=== PATIENT | male | born 1955 | race Caucasian/White ===

== ENCOUNTER 2018-03-08 18:42 | Inpatient (IN) | payer OTHER ==
[~2018-03-08] VITALS: Ht 177.8 cm; Wt 89.8 kg
[2018-03-08 19:11] LABS: ABSOLUTE BASOPHIL COUNT 0.1 /CUMM (0.0-0.2); ABSOLUTE EOSINOPHIL COUNT 0.2 /CUMM (0.0-0.7); ABSOLUTE GRANULOCYTE CT 6.5 /CUMM (1.4-6.5); ABSOLUTE LYMPH COUNT 1.4 /CUMM (1.2-3.4); ABSOLUTE MONOCYTE COUNT 0.6 /CUMM (0.10-0.60); BASOPHIL % 0.6 % (0.0-2.0); EOSINOPHIL % 2.1 % (0-5); GRANULOCYTE % 74.3 % (42.2-75.2); HEMATOCRIT 24.4 % (42-52); MEAN CORPUSCULAR HGB 30.8 PG (27.0-31.0); MEAN CORPUSCULAR VOLUME 90.6 FL (80.0-94.0); MEAN PLATELET VOLUME 6.7 FL (7.4-10.4); PLATELET COUNT 327 /CUMM (130-400); RBC DISTRIBUTION WIDTH 14.5 % (11.5-14.5); RED BLOOD CELL CT 2.69 /CUMM (4.70-6.10); WHITE BLOOD CELL COUNT 8.8 /CUMM (4.8-10.8)
--- NOTE | 2018-03-08 21:04 | ED GENERAL ADULT ---
History of Present Illness General Chief Complaint: Dizziness Stated Complaint: SOB,GENERAL WEAKNESS,DIZZY Source: patient, family Exam Limitations: no limitations Vital Signs & Intake/Output Vital Signs & Intake/Output Vital Signs Date Time Temp Pulse Resp B/P B/P Pulse O2 O2 Flow FiO2 Mean Ox Delivery Rate 03/08 2120 91 18 118/60 99 03/08 1853 97.4 91 18 134/75 99 Room Air Allergies Coded Allergies: NO KNOWN ALLERGIES (03/02/13) Triage Note: PT TO ER C/C 4 DAYS HX OF SOB AND BARBOZA, STARTED WHILE PATIENT WAS IN [place]. DENIES COUGH, DENIES CHEST PAIN. PT STATES WHILE IN [place] HE HAD SOME LOWER EXT EDEMA (NONE NOTED NOW). RA SAT 98%. AFEBRILE Triage Nurses Notes Reviewed? yes HPI: Patient presents with lightheadedness that has been worsening over the past 4 days. The symptoms are worse with exertion and then decrease with rest. Patient is also noticed that he gets left shoulder achy pain over the past 3 days that also called with exertion and then decreases with rest. When he gets an aching pain there is no radiation. He rates it at a 4 out of 10. Patient denies any chest pain or shortness of breath. Patient denies any dizziness. Patient states that over the past week and a half he has had anorexia. Patient states that he was recently in [place] visiting friends and had a lot of alcohol while there. Patient did have a one day history of periumbilical crampy abdominal pain that lasted most of the day and then resolved. Patient states he has not had any pain since then. Patient states that while down in [place] he had approximately 3 day history of very dark tarry stools but those have also resolved. Patient also states that he has been getting a crampy pain in his left calf. The pain seems to be worse at night and then goes away during the day. There is no radiation when he gets the pain. When he has had pain is 7 out of 10. Past History Travel History Traveled to [place] past 21 day No Medical History Any Pertinent Medical History? see below for history Cardiovascular: hypertension, hyperlipidemia Surgical History Surgical History: non-contributory Psychosocial History What is your primary language Khmer Tobacco Use: Never used ETOH Use: occasional use Illicit Drug Use: denies illicit drug use Family History Hx Contributory? No Review of Systems Review of Systems Constitutional: Reports: see HPI, weakness. EENTM: Reports: no symptoms. Respiratory: Reports: no symptoms. Cardiovascular: Reports: see HPI. GI: Reports: see HPI. Genitourinary: Reports: no symptoms. Musculoskeletal: Reports: see HPI. Skin: Reports: no symptoms. Neurological/Psychological: Reports: no symptoms. Hematologic/Endocrine: Reports: no symptoms. Immunologic/Allergic: Reports: no symptoms. All Other Systems: Reviewed and Negative Physical Exam Physical Exam General Appearance: well developed/nourished, alert, awake, anxious, mild distress Head: atraumatic Eyes: Bilateral: PERRL, EOMI, pale conjunctivae. Ears, Nose, Throat: normal pharynx, normal ENT inspection, hearing grossly normal Neck: normal inspection, supple, full range of motion Respiratory: normal breath sounds, chest non-tender, no respiratory distress, lungs clear Cardiovascular: regular rate/rhythm, normal peripheral pulses Gastrointestinal: normal bowel sounds, soft, non-tender, no organomegaly Rectal: DARK, FORMED STOOL, HEME POSITIVE Back: normal inspection, normal range of motion Extremities: normal inspection, normal capillary refill, normal range of motion, no edema Neurologic/Psych: no motor/sensory deficits, awake, alert, oriented x 3, normal gait, normal mood/affect Skin: intact, normal color, warm/dry Core Measures ACS in differential dx? Yes No ASA d/t HEME POSITIVE STOOL, ANEM CVA/TIA Diagnosis: No Sepsis Present: No Sepsis Focused Exam Completed? No Progress Differential Diagnoses I considered the following diagnoses in my evaluation of the patient: [GI BLEED, PE, ACS, ELECTROLYTE ABNORMALITY] Plan of Care: Orders Procedure Date/time Status Clear Liquid Diet 03/09 B Active TYPE & SCREEN (NOT X-MATCH) 03/08 2157 Active ED Holding Orders 03/08 2153 Active Admit to inpatient 03/08 2153 Active Add-on Test (ER Only) 03/08 2153 Active Vital Signs 03/08 2153 Active Code Status 03/08 2153 Active LEUKOCYTE POOR (PACKED CELLS) 03/08 2153 Active XRY-PORTABLE CHEST XRAY 03/08 2114 Active Add-on Test (ER Only) 03/08 2114 Active Telemetry/Promotions Associate 03/08 2114 Active MISTAKE 03/08 210 Active LIPASE 03/08 185 Complete AMYLASE 03/08 1856 Complete TROPONIN LEVEL 03/08 1854 Complete D-DIMER 03/08 1854 Complete CBC WITHOUT DIFFERENTIAL 03/08 1854 Complete B-TYPE NATRIURETIC PEP (BNP) 03/08 1854 Complete BASIC METABOLIC PANEL 03/08 1854 Complete EKG 03/08 1846 Active Current Medications Sig/Tavo Start time Last Medication Dose Stop Time Status Admin Sodium Chloride 1,000 ML BOLUS ONE 03/08 2115 AC 03/08 (Normal Saline 0.9%) 03/08 2214 213 Laboratory Tests 03/08/181855: Anion Gap 12, Estimated GFR 56 L, BUN/Creatinine Ratio 29.2 H, Glucose 109 H, Calcium 9.6, Troponin I < 0.01, Drz-V-Hynvbbgarct Pept 55.3, Amylase 54, Lipase 209, D-Dimer High Sensitivty 207, CBC w Diff NO MAN DIFF REQ, RBC 2.69 L, MCV 90.6, MCH 30.8, MCHC 34.0, RDW 14.5, MPV 6.7 L, Gran % 74.3, Lymphocytes % 16.3 L, Monocytes % 6.7, Eosinophils % 2.1, Basophils % 0.6, Absolute Granulocytes 6.5, Absolute Lymphocytes 1.4, Absolute Monocytes 0.6, Absolute Eosinophils 0.2, Absolute Basophils 0.1 Diagnostic Imaging: Viewed by Me: Radiology Read. Discussed w/RAD: Radiology Read. Initial ED EKG: NSR, nonspecific ST T wave chg Rhythm Strip: normal sinus rhythm Departure Departure Disposition: STILL A PATIENT Condition: Guarded Clinical Impression Primary Impression: GI bleed Secondary Impressions: ACS (acute coronary syndrome), Symptomatic anemia Referrals: Kavya Cabrera MD (PCP/Family) Departure Forms: Customer Survey General Discharge Information Admission Note Spoke With: Anatoly Calzada MD Documentation of Exam: Documentation of any treatments & extenuating circumstances including Concerns Regarding Discharge (functional status, medication knowledge or non-compliance, living conditions, etc.) that warrant an admission rather than observation: [ Transfusion, GI consultation, cardiology consultation, telemetry monitoring, serial enzymes, most likely will need endoscopy plus or minus colonoscopy] Critical Care Note Critical Care Note Critical Care Time: mins: (45 MIN)
--- NOTE | 2018-03-08 22:06 | RADIOLOGY REPORT ---
EXAMINATION: XR PORTABLE CHEST CLINICAL INFORMATION: Chest pain COMPARISON: None TECHNIQUE: Portable frontal view of the chest was obtained. FINDINGS: Lungs are well expanded and clear. No pulmonary edema, consolidation, pneumothorax or pleural effusion. Cardiac silhouette is normal in size. The hilar contours are normal. No acute osseous findings. IMPRESSION: No acute cardiopulmonary disease.
[2018-03-09] VITALS (10 sets, daily range): BP systolic 100–128; BP diastolic 60–78
--- NOTE | 2018-03-09 00:16 | History & Physical ---
Pritesh PALACIOS,Bernard 03/09/18 0016: General Information and HPI MD Statement: I have seen and personally examined DANIEL SHARMA and documented this H&P. The patient is a 62 year old M who presented with a patient stated chief complaint of [shortness of breath]. Source of Information: patient, old records Exam Limitations: no limitations History of Present Illness: Patient is extremely 62-year-old male with past medical history of hypertension, hyperlipidemia, previous colon cancer screening colonoscopy in 2016 showing mild diverticulosis presenting this admission with chief complaint of shortness of breath and dyspnea on exertion. Patient reports that approximately one week prior to admission he was in [place] at which point he started experiencing sudden onset of shortness of breath. Patient reports that he spent most of the time golfing prior to which he would take aspirin 800 mg. Patient also reports drinking large amounts of alcohol ( states along with 3 other people he was drinking approximately 13 handles of vodka per day.. Patient states otherwise he has been drinking for the past 1 year either 2-3 beers or vodka). Patient reports that while he was in [place] he also had multiple black tarry stool and reported occasional bilateral ankle swelling. Patient states that one day prior to admission he was mowing the lawn at which point he had to stop due to left sided chest pain that radiated to his left arm and subsided with rest. Associated symptoms include dizziness, lightheadedness, palpitations. Patient states that he has had decreased appetite over the past 2 days and has not been drinking much water. Patient denies any bright red blood per stool. Patient states that he is no longer having black tarry stool. Patient denies any nausea/vomiting. Patient reports left-sided low back pain that radiated down his left leg described as sharp shooting pain. 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 Past medical history: As above Past surgical history: Denies Family history: No significant cardiac history. Reports his mother from bone cancer Social history: Current every day alcohol abuse/binge drinking, denies tobacco use or illicit drug use Medications: Lisinopril, simvastatin PCP: Khurram Cabrera MD Allergies: Denies any allergies to medications Allergies/Medications Allergies: Coded Allergies: NO KNOWN ALLERGIES (03/02/13) Home Med list Ferrous Sulfate 325 MG (65 MG IRON) TABLET 1 TAB PO DAILY supplement Lisinopril 10 MG TABLET 1 TAB PO DAILY HTN (Reported) Omeprazole 40 MG CAPSULE. 1 CAP PO DAILY Stomach Health Simvastatin (Simvastatin*) 40 MG TABLET 1 TAB PO QPM HLD (Reported) Past History Travel History Traveled to [place] past 21 day No Medical History Blood Transfusion Hx: No Neurological: dizziness Cardiovascular: hypertension, hyperlipidemia History of MRSA: No History of VRE: No History of CDIFF: No Isolation History: Standard Surgical History Surgical History: non-contributory Past Family/Social History Psychosocial History Where do you live? Home Services at Home: None Smoking Status: Never Smoked ETOH Use: occasional use Illicit Drug Use: denies illicit drug use Review of Systems Review of Systems Constitutional: Reports: see HPI. Cardiovascular: Reports: see HPI. Respiratory: Reports: see HPI. GI: Reports: see HPI. Genitourinary: Reports: no symptoms. Musculoskeletal: Reports: see HPI. Skin: Reports: no symptoms. Neurological/Psychological: Reports: no symptoms. Hematologic/Endocrine: Reports: see HPI. Immunologic/Allergic: Reports: no symptoms. Exam & Diagnostic Data Last 24 Hrs of Vital Signs/I&O Vital Signs Date Time Temp Pulse Resp B/P B/P Pulse O2 O2 Flow FiO2 Mean Ox Delivery Rate 03/09 0704 97.9 68 20 108/62 97 Room Air 03/09 0400 98.9 67 20 116/76 03/09 0301 99.0 72 20 128/78 03/09 0008 98.1 72 20 112/74 97 Room Air 03/08 2312 97.5 86 18 122/74 97 Room Air Room Air 03/08 2120 91 18 118/60 99 03/08 1853 97.4 91 18 134/75 99 Room Air Intake & Output 03/09 0800 03/09 0000 03/08 1600 Intake Total 220 1000 Output Total 150 Balance 70 1000 Intake, IV 1000 Intake, Oral 220 Output, Urine 150 Patient 198 lb 198 lb Weight Weight Bed scale Bed scale Measurement Method Physical Exam General Appearance Alert, Oriented X3, Cooperative, No Acute Distress Skin No Rashes Skin Temp/Moisture Exam: Warm/Dry Sepsis Skin Exam (color): Normal for Ethnicity HEENT Atraumatic, PERRLA, EOMI, Mucous Membr. moist/pink Neck Supple, No JVD, +2 Carotid Pulse wo Bruit Lymphatic Cervical nl Cardiovascular Regular Rate, Normal S1, Normal S2, No Murmurs Lungs Clear to Auscultation, Normal Air Movement Abdomen Normal Bowel Sounds, Soft, No Tenderness Neurological Normal Speech, Strength at 5/5 X4 Ext, Normal Tone, Sensation Intact, Cranial Nerves 3-12 NL, Reflexes 2+ Extremities No Clubbing, No Cyanosis, No Edema, Normal Pulses, No Tenderness/ Swelling Vascular Normal Pulses, Pulses Symmetrical Last 24 Hrs of Labs/Andrea: Laboratory Tests 03/09/18 0253: Urine Opiates Screen < 100, Methadone Screen < 40, Barbiturate Screen < 60, Ur Phencyclidine Scrn < 6.00, Amphetamines Screen < 100, U Benzodiazepines Scrn < 85, Urine Cocaine Screen < 50, Urine Cannabis Screen < 5.00 03/09/18 0123: Troponin I < 0.01 03/08/18 1856: Anion Gap 12, Estimated GFR 56 L, BUN/Creatinine Ratio 29.2 H, Glucose 109 H, Hemoglobin A1c Pending, Calcium 9.6, Phosphorus 4.1, Magnesium 2.0, Iron 75, TIBC 378, Ferritin 151.0, Total Bilirubin 0.4, AST 31, ALT 55, Alkaline Phosphatase 39, Troponin I < 0.01, Xtk-P-Wsrpxpqowgg Pept 55.3, Amylase 54, Lipase 209, Vitamin B12 588, Folate 8.9, TSH 6.720 H, Free T4 0.87, D-Dimer High Sensitivty 207, CBC w Diff NO MAN DIFF REQ, RBC 2.69 L, MCV 90.6, MCH 30.8 , MCHC 34.0, RDW 14.5, MPV 6.7 L, Gran % 74.3, Lymphocytes % 16.3 L, Monocytes % 6.7, Eosinophils % 2.1, Basophils % 0.6, Absolute Granulocytes 6.5, Absolute Lymphocytes 1.4, Absolute Monocytes 0.6, Absolute Eosinophils 0.2, Absolute Basophils 0.1 Assessment/Plan Assessment: Patient is extremely 62-year-old male with past medical history of hypertension, hyperlipidemia, previous colon cancer screening colonoscopy in 2016 showing mild diverticulosis presenting this admission with chief complaint of shortness of breath and dyspnea on exertion. Patient will be admitted to the telemetry unit for management of the followin. Symptomatic anemia likely secondary to upper GI bleed due to aspirin and alcohol use 2. Angina rule out ACS, chest pain likely due to above 3. TOMASA likely prerenal azotemia due to above and dehydration 4. Alcohol abuse, monitor for signs of withdrawal 5. Chronic conditions: Hypertension, hyperlipidemia Plan: Admitted to telemetry with continuous telemetry monitoring Serial EKG and troponins Type and cross and transfuse 1 PRBC Repeat H&H status post one transfusion GI consult in a.m. Cardiology consult in a.m. Hold lisinopril in setting of TOMASA IV NS @ 100cc/hr ECHO CIWA protocol Thiamine and folate Follow up LFTs and INR Replete electrolytes Orthostatic vitals GI prophylaxis: IV protonix BID DVT prophylaxis: ALPS only in setting of acute blood loss Diet: Heart Healthy Code: Full code As Ranked By This Provider Problem List: 1. Symptomatic anemia 2. GI bleed 3. ACS (acute coronary syndrome) Core Measures/Misc (07/19) Acute Coronary Syndrome ACS Diagnosis: No Congestive Heart Failure Congestive Heart Failure Diagnosis No Cerebrovascular Accident CVA/TIA Diagnosis: No VTE (View Protocol) VTE Risk Factors Age>40 No Mechanical VTE Prophylaxis d/t N/A MechProphylax Ordered No VTE Pharm Prophylaxis d/t Bleeding (Active) Sepsis (View protocol) Sepsis Present: No Marvin Rodriguez 03/09/18 0259: Resident Review Statement Resident Statement: examined this patient, discussed with internal medicine physician, agreed with internal medicine physician, discussed with family, reviewed EMR data (avail), discussed with nursing , discussed with case mgmt, reviewed images, amended to note Other Findings: This is a 62-year-old man with a medical history of hypertension, hyperlipidemia. He presented to the emergency department with chief complaint of dyspnea on exertion, palpitation, dizziness. He stated his symptoms started yesterday, getting progressed especially with excision. when he noticed that his heart was pounding, he was feeling dizzy, associated with shortness of breath and dyspnea on exertion . He also had left shoulder pain. He stated that he was taking aspirin around 800 mg and drinking excessive alcohol to drink his vacation in [place], and also he reported stool when He was in [place], he stated that he doesn't have it anymore. Patient stated that he drinks 3-4 beers every day for the past year, his last drink was on Thursday. In the ED patient found to have H&H of 8.3 compared with his baseline at 2010 that was around 12. Also patient had elevated creatinine and BUN 1.3/38 that seems to be most likely dehydration. Patient was type and screen and received 1 unit of packed RBCs. Physical examination, lab and imaging as above. Problem list: - Acute Anemia secondary to acute blood loss - Chest pain need to Rule out ACS - Alcohol dependence Plan: - Admit to telemetry - Vitals every shift, check orthostatic - Serial troponin and EKGs - Obtain echocardiogram - Cardiology consult in a.m. - Protonix 40 mg IV twice a day - IVF of NS @ 100 cc/hr. - Obtain LFTs, INR, TSH, free T4, magnesium, phosphorus and urine tox - Gastroenterology consult - CIWA protocol hold off Ativan - Cell thiamine, folic acid and multivitamin - Hold off home dose of lisinopril, continue atorvastatin. - Heart healthy diet - Pain pathway - DVT prophylaxis:Alps - Full code. Anatoly Calzada 03/09/18 0615: Attending MD Review Statement Attending Statement Attending MD Statement: examined this patient, discuss w/resident/PA/CLIENT SERVICE COORDINATOR, agreed w/resident/PA/CLIENT SERVICE COORDINATOR, reviewed EMR data (avail), reviewed images, amended to note Attending Assessment/Plan: CC: Shortness of breath PMH: HTN, HLD Patient came to ER when his family insisted that he should be investigated. Patient recently went to [place] approximately a week back. At that time he was binge drinking alcohol, took aspirin 800 milligrams and was playing golf for most of the day. He noticed minor leg swellings that time. After coming back he was mowing his lawn yesterday, when he noticed that his heart was pounding, he was feeling dizzy, 70 shortness of breath and dyspnea on exertion. He also had left shoulder pain. When he described all his symptoms to his family, (many of them are in nursing profession), they suggested him to go to ER. Patient also endorses 2 times black tarry stool when in [place]. Usually patient drinks 1-2 beers per day for 5 days a week but since last 1 week he has been drinking more because of his vacation. Vitals temperature 97.4, pulse 91, RR 18, blood pressure 134/75, saturating 99% on room air. On exam: A O 3, cooperative, no acute distress, neck supple, JVD normal, no lymphadenopathy, mucosa moist, no focal neurological deficit, no dependent edema , no obvious skin rashes or inflammation CVS: S1-S2, RRR. RS: Clear to auscultate bilaterally. Abdomen: Soft, NT, ND, bowel sounds present. CXR: no acute cardiopulmonary disease. Assessment and plan 62-year-old male with past medical history significant for hypertension and dyslipidemia presented in ER for dyspnea on exertion, palpitation, dizziness mostly on exertion that started yesterday, relieved after taking rest. Of note he noticed to black colored stool over last 1 week. He endorses taking aspirin and drinking excessive alcohol because of his vacation. Patient's hemoglobin was found to be 8.3. According to patient he had his routine physical exam done approximately 2 months back and all labs were normal at that time. Patient may be having upper GI bleed secondary to aspirin and alcohol, causing anemia which leading to symptoms suggestive of demand ischemia. Currently patient is asymptomatic with regards to chest pain, palpitation, dizziness or shortness of breath. His proBNP is 55 and d-dimer is 207 ruling out any heart failure or pulmonary embolism. + Anemia secondary to acute blood loss + Rule out ACS + History of hypertension - Admit to telemetry - Continuous telemetry monitoring - Serial troponin and EKGs - 2-D echo in a.m. - Cardiology consult in a.m. - Transfuse 1 unit PRBC - Orthostatic vitals - Proton neck 40 mg IV twice a day - Check LFT, INR - GI consult - Repeat CBC in a.m. - Continue CIWA protocol - Continue thiamine, folic acid - Check mag and phosphorus and replete if deficient - Hold off home dose of lisinopril
[2018-03-09] MEDS ORDERED: LISINOPRIL10 M1 PO (00:53)
[2018-03-09] MEDS ORDERED: SIMVASTATIN40 M1 PO (00:54)
--- NOTE | 2018-03-09 06:17 | Admission Certification ---
Admission Certification Certification Statement - As attending physician, I certify that at the time of - admission, based on clinical presentation, severity of - symptoms, need for further diagnostic testing and - therapeutic interventions, and risk of adverse outcomes - without in-hospital treatment, in my clinical assessment, - this patient requires an acute hospital stay for a minimum - of two nights or longer. I have also considered psychsocial - factors such as support system, advanced age, financial - issues, cognitive issues, and failed out-patient treatments, - past re-admission history, safety of patient, and lack of - compliance as applicable. Specific rationale supporting this admission is: Suspected GI bleed and chest pain rule out ACS
[2018-03-09 07:57] LABS: ABSOLUTE BASOPHIL COUNT 0.1 /CUMM (0.0-0.2); ABSOLUTE EOSINOPHIL COUNT 0.3 /CUMM (0.0-0.7); ABSOLUTE GRANULOCYTE CT 4.5 /CUMM (1.4-6.5); ABSOLUTE LYMPH COUNT 1.3 /CUMM (1.2-3.4); ABSOLUTE MONOCYTE COUNT 0.5 /CUMM (0.10-0.60); BASOPHIL % 0.8 % (0.0-2.0); EOSINOPHIL % 4.1 % (0-5); GRANULOCYTE % 67.9 % (42.2-75.2); HEMATOCRIT 25.1 % (42-52); MEAN CORPUSCULAR HGB 30.7 PG (27.0-31.0); MEAN CORPUSCULAR HGB CONC 34.2 G/DL (33.0-37.0); MEAN CORPUSCULAR VOLUME 89.6 FL (80.0-94.0); PLATELET COUNT 263 /CUMM (130-400); RBC DISTRIBUTION WIDTH 14.6 % (11.5-14.5); WHITE BLOOD CELL COUNT 6.6 /CUMM (4.8-10.8)
[2018-03-09 08:36] LABS: PT 11.1 SEC (9.4-12.5); PTT 25 SEC (25-37)
--- NOTE | 2018-03-09 11:23 | PN- Att Addend ---
Attending Addendum Attending Brief Note 62-year-old male with past medical history significant for hypertension and dyslipidemia presented in ER for dyspnea on exertion and black colored stool over last 1 week. He found to have anemia likely blood loss rule out peptic ulcer disease in setting of NSAIDs and alcohol use. labs and vitals noted. PE unremarkable. 1 Anemia secondary to acute blood loss s/p tranfuse 1 unit of prbc 2. Peptic ulcer disease possible or Ele Kaur. 3. History of hypertension 4. Alcohol use 5. NSAIDS use. - Continuous telemetry monitoring - Cardiology consult and GI consult - PPI iv, Serial cbc monitoring. - Continue thiamine, folic acid - resume BP meds as able. Admission Lab Results I reviewed the following labs: Laboratory Tests 03/09 03/09 03/09 0645 0253 0123 Chemistry Sodium (137 - 145 mmol/L) 138 Potassium (3.5 - 5.1 mmol/L) 4.5 Chloride (98 - 107 mmol/L) 106 Carbon Dioxide (22 - 30 mmol/L) 23 Anion Gap (5 - 16) 9 BUN (9 - 20 mg/dL) 27 H Creatinine (0.7 - 1.2 mg/dL) 0.8 Estimated GFR (>60 ml/min) > 60 BUN/Creatinine Ratio (7 - 25 %) 33.8 H Troponin I (<0.11 ng/ml) < 0.01 < 0.01 Triglycerides (<150 mg/dL) 88 Cholesterol (< 200 MG/DL) 146 LDL Cholesterol, Calc (65 - 129 mg/dL) 75 HDL Cholesterol (40 - 60 mg/dL) 54 Cholesterol/HDL Ratio (0.00 - 4.88 %) 3 Coagulation PT (9.4 - 12.5 SEC) 11.1 INR (0.90 - 1.17) 1.02 APTT (25 - 37 SEC) 25 Hematology CBC w Diff NO MAN DIFF REQ WBC (4.8 - 10.8 /CUMM) 6.6 RBC (4.70 - 6.10 /CUMM) 2.80 L Hgb (14.0 - 18.0 G/DL) 8.6 L Hct (42 - 52 %) 25.1 L MCV (80.0 - 94.0 FL) 89.6 MCH (27.0 - 31.0 PG) 30.7 MCHC (33.0 - 37.0 G/DL) 34.2 RDW (11.5 - 14.5 %) 14.6 H Plt Count (130 - 400 /CUMM) 263 MPV (7.4 - 10.4 FL) 7.0 L Gran % (42.2 - 75.2 %) 67.9 Lymphocytes % (20.5 - 51.1 %) 20.1 L Monocytes % (1.7 - 9.3 %) 7.1 Eosinophils % (0 - 5 %) 4.1 Basophils % (0.0 - 2.0 %) 0.8 Absolute Granulocytes (1.4 - 6.5 /CUMM) 4.5 Absolute Lymphocytes (1.2 - 3.4 /CUMM) 1.3 Absolute Monocytes (0.10 - 0.60 /CUMM) 0.5 Absolute Eosinophils (0.0 - 0.7 /CUMM) 0.3 Absolute Basophils (0.0 - 0.2 /CUMM) 0.1 Toxicology Urine Opiates Screen (>2000 NG/ML) < 100 Methadone Screen (>300 NG/ML) < 40 Barbiturate Screen (>200 NG/ML) < 60 Ur Phencyclidine Scrn (>25 NG/ML) < 6.00 Amphetamines Screen (>1000 NG/ML) < 100 U Benzodiazepines Scrn (>200 NG/ML) < 85 Urine Cocaine Screen (>300 NG/ML) < 50 Urine Cannabis Screen (>50 NG/ML) < 5.00 Serum Alcohol (<10 MG/DL) < 10.0 03/08 1856 Chemistry Sodium (137 - 145 mmol/L) 138 Potassium (3.5 - 5.1 mmol/L) 4.7 Chloride (98 - 107 mmol/L) 101 Carbon Dioxide (22 - 30 mmol/L) 25 Anion Gap (5 - 16) 12 BUN (9 - 20 mg/dL) 38 H Creatinine (0.7 - 1.2 mg/dL) 1.3 H Estimated GFR (>60 ml/min) 56 L BUN/Creatinine Ratio (7 - 25 %) 29.2 H Glucose (65 - 99 mg/dL) 109 H Hemoglobin A1c (4.2 - 5.8 %) 5.5 Calcium (8.4 - 10.2 mg/dL) 9.6 Phosphorus (2.5 - 4.5 mg/dL) 4.1 Magnesium (1.6 - 2.3 mg/dL) 2.0 Iron (49 - 181 ug/dL) 75 TIBC (261 - 462 ug/dL) 378 Ferritin (17.9 - 464 ng/mL) 151.0 Total Bilirubin (0.2 - 1.3 mg/dL) 0.4 AST (17 - 59 U/L) 31 ALT (21 - 72 U/L) 55 Alkaline Phosphatase (< 127 U/L) 39 Troponin I (<0.11 ng/ml) < 0.01 [id number] Pept (<125 pg/mL) 55.3 Amylase (30 - 110 U/L) 54 Lipase (23 - 300 U/L) 209 Vitamin B12 (239 - 931 pg/mL) 588 Folate (2.76 - 20.0 ng/mL) 8.9 TSH (0.270 - 4.200 uIU/mL) 6.720 H Free T4 (0.78 - 2.44 ng/dL) 0.87 Coagulation D-Dimer High Sensitivty (0 - 243 ng/ml) 207 Hematology CBC w Diff NO MAN DIFF REQ WBC (4.8 - 10.8 /CUMM) 8.8 RBC (4.70 - 6.10 /CUMM) 2.69 L Hgb (14.0 - 18.0 G/DL) 8.3 L Hct (42 - 52 %) 24.4 L MCV (80.0 - 94.0 FL) 90.6 MCH (27.0 - 31.0 PG) 30.8 MCHC (33.0 - 37.0 G/DL) 34.0 RDW (11.5 - 14.5 %) 14.5 Plt Count (130 - 400 /CUMM) 327 MPV (7.4 - 10.4 FL) 6.7 L Gran % (42.2 - 75.2 %) 74.3 Lymphocytes % (20.5 - 51.1 %) 16.3 L Monocytes % (1.7 - 9.3 %) 6.7 Eosinophils % (0 - 5 %) 2.1 Basophils % (0.0 - 2.0 %) 0.6 Absolute Granulocytes (1.4 - 6.5 /CUMM) 6.5 Absolute Lymphocytes (1.2 - 3.4 /CUMM) 1.4 Absolute Monocytes (0.10 - 0.60 /CUMM) 0.6 Absolute Eosinophils (0.0 - 0.7 /CUMM) 0.2 Absolute Basophils (0.0 - 0.2 /CUMM) 0.1 Admission Meds I reviewed the following Meds: Current Medications Sig/Tavo Start time Last Medication Dose Stop Time Status Admin Acetaminophen 650 MG Q6P PRN 03/09 100 AC (Tylenol) Atorvastatin Calcium 40 MG 1700 03/09 1700 AC (Lipitor) Folic Acid 1 MG DAILY 03/09 900 AC 03/09 (Folic Acid) 0823 Hydrocodone Bitart/ 1 TAB Q6P PRN 03/09 100 AC Acetaminophen (Vicodin) Morphine Sulfate 2 MG Q6P PRN 03/09 100 AC (MORPHINE SULFATE) Multivitamins 1 TAB DAILY 03/09 900 AC 03/09 (Theragran Vitamins) 0823 Pantoprazole Sodium 40 MG BID 03/09 200 AC 03/09 (Protonix) 0823 Sodium Chloride 1,000 ML Q13H 03/09 100 AC 03/09 (Normal Saline 0.9%) 03/09 1359 0714 Thiamine HCl 100 MG DAILY 03/09 200 AC 03/09 (Vitamin B1) 0823
--- NOTE | 2018-03-09 12:32 | ECHOCARDIOGRAM REPORT ---
RAZDANIEL NICHOLSON Age: 62 : 1955 Gender: M Exam Date: 03/09/2018 10:59 Exam Location: 1 [address] Ht (in): 70 Wt (lb): 198 BSA: 2.12 BP: 108 / 62 Ordering Physician: Marvin Rodriguez MD Referring Physician: Marvin Rodriguez MD Technologist: Angel Contreras [facility] Room Number: 175-1 Indications: Chest Pain Rhythm: Sinus Technical Quality: Good FINDINGS Left Ventricle Normal global left ventricular size, wall thickness, systolic function with no obvious regional wall motion abnormalities. Normal left ventricular ejection fraction estimated at 55-60%. Right Ventricle Normal right ventricular size and function. Right Atrium Normal right atrial size. Left Atrium Mild to moderate left atrial dilatation. Mitral Valve Mitral valve thickened. Mild mitral annular calcification. Mild mitral regurgitation. Aortic Valve Trileaflet aortic valve. Diffuse thickening (sclerosis) of the aortic valve cusps without reduced excursion. No aortic stenosis. No aortic regurgitation. Tricuspid Valve Structurally normal tricuspid valve. Mild tricuspid regurgitation. Pulmonic Valve Structurally normal pulmonic valve. Trace pulmonic regurgitation. Pericardium No pericardial effusion. Great Vessels Normal size aortic root and proximal ascending aorta. CONCLUSIONS 1. MIld aortic sclerosis is present with no valvular stenosis or insufficiency. 2. Mitral leaflet thickening is present with mild anular calcification and mild mitral insufficiency with mild to moderate left atrial enlargement. 3. There is no significant pericardial fluid present. 4. The left ventricular chamber size and systolic function appear normal. There are no visible resting wall motion abnormalities. 6. Mild tricuspid insufficiency is present with minimal pulmonic insufficiency and no evidence of pulmonary hypertension. Kwaku Ni M.D. (Electronically Signed) Final Date: 09 Mar 2018 12:31 MEASUREMENTS (Male / Female) Normal Values 2D ECHO LV Diastolic Diameter PLAX 5.2 cm 4.2 - 5.9 / 3.9 - 5.3 cm LV Systolic Diameter PLAX 3.1 cm 2.1 - 4.0 cm LV Fractional Shortening PLAX 40.4 % 25 - 46 % LV Ejection Fraction 2D Teich 70.7 % IVS Diastolic Thickness 0.9 cm LVPW Diastolic Thickness 1.0 cm LV Relative Wall Thickness 0.4 RV Internal Dim ED PLAX 3.6 cm 1.9 - 3.8 cm LVOT Diameter 2.2 cm Aortic Root Diameter 3.0 cm LA Systolic Diameter LX 4.6 cm 3.0 - 4.0 / 2.7 - 3.8 cm LA Volume 71.0 cm 18 - 58 / 22 - 52 cm Ascending Aorta Diameter 3.2 cm DOPPLER AV Peak Velocity 164.0 cm/s AV Peak Gradient 10.8 mmHg AV Mean Velocity 103.0 cm/s AV Mean Gradient 5.0 mmHg AV Velocity Time Integral 30.3 cm LVOT Peak Velocity 88.7 cm/s LVOT Peak Gradient 3.1 mmHg LVOT Mean Velocity 52.0 cm/s LVOT Mean Gradient 1.0 mmHg LVOT Velocity Time Integral 20.0 cm LVOT Stroke Volume 76.0 cm AV Area Cont Eq vti 2.5 cm AV Area Cont Eq pk 2.1 cm MR Peak Velocity 557.5 cm/s MR Peak Gradient 124.3 mmHg TR Peak Velocity 273.0 cm/s TR Peak Gradient 29.8 mmHg Right Atrial Pressure 10.0 mmHg Pulmonary Artery Systolic Pressu 39.8 mmHg Right Ventricular Systolic Press 39.8 mmHg PV Peak Velocity 97.9 cm/s PV Peak Gradient 3.8 mmHg PV Mean Velocity 67.3 cm/s PV Mean Gradient 2.0 mmHg PV Velocity Time Integral 24.2 cm LV E' Lateral Velocity 10.8 cm/s LV E' Septal Velocity 8.0 cm/s
--- NOTE | 2018-03-09 14:02 | Cons- Gastroenterology ---
General Information and HPI Consulting Request Date of Consult: 03/09/18 Requested By: Anatoly Calzada MD Reason for Consult: Blood loss anemia Melena Allergies/Medications Allergies: Coded Allergies: NO KNOWN ALLERGIES (03/02/13) Home Med List: Lisinopril 10 MG TABLET 1 TAB PO DAILY HTN (Reported) Simvastatin (Simvastatin*) 40 MG TABLET 1 TAB PO QPM HLD (Reported) Current Medications: Current Medications Sig/Tavo Start time Last Medication Dose Route Stop Time Status Admin Acetaminophen 650 MG Q6P PRN 03/09 0100 AC PO Atorvastatin Calcium 40 MG 1700 03/09 1700 AC PO Folic Acid 1 MG DAILY 03/09 0900 AC 03/09 PO 0823 Hydrocodone Bitart/ 1 TAB Q6P PRN 03/09 0100 AC Acetaminophen PO Morphine Sulfate 2 MG Q6P PRN 03/09 0100 AC IV Multivitamins 1 TAB DAILY 03/09 0900 AC 03/09 PO 0823 Pantoprazole Sodium 40 MG BID 03/09 0200 AC 03/09 IV 0823 Sodium Chloride 1,000 ML Q13H 03/09 0100 AC 03/09 IV 03/09 1359 0714 Sodium Chloride 1,000 ML BOLUS ONE 03/08 2115 DC 03/08 IV 03/08 2214 2136 Thiamine HCl 100 MG DAILY 03/09 0200 AC 03/09 PO 0823 Past History Travel History Traveled to [place] past 21 day No Medical History Blood Transfusion Hx: No Neurological: dizziness Cardiovascular: hypertension, hyperlipidemia Surgical History Surgical History: non-contributory Psychosocial History Where Do You Live? Home Services at Home: None Smoking Status: Never Smoked ETOH Use: occasional use Illicit Drug Use: denies illicit drug use Exam & Diagnostic Data Vital Signs and I&O Vital Signs Date Time Temp Pulse Resp B/P B/P Pulse O2 O2 Flow FiO2 Mean Ox Delivery Rate 03/09 1200 84 118/64 / 0800 98.7 84 16 108/60 05/08 0704 97.9 68 20 108/62 97 Room Air / 0400 98.9 67 20 116/76 / 0301 99.0 72 20 128/78 / 0008 98.1 72 20 112/74 97 Room Air 03/08 2312 97.5 86 18 122/74 97 Room Air Room Air 03/08 2120 91 18 118/60 99 03/08 1853 97.4 91 18 134/75 99 Room Air Intake & Output 03/09 04003/08 04003/07 0400 Intake Total 220 1000 Output Total 150 Balance 70 1000 Intake, IV 1000 Intake, Oral 220 Output, Urine 150 Patient 198 lb 198 lb Weight Weight Bed scale Bed scale Measurement Method Physical Exam: Unrevealing Results Pertinent Lab Results: Laboratory Tests 03/09 0253 0123 Chemistry Sodium (137 - 145 mmol/L) 138 Potassium (3.5 - 5.1 mmol/L) 4.5 Chloride (98 - 107 mmol/L) 106 Carbon Dioxide (22 - 30 mmol/L) 23 Anion Gap (5 - 16) 9 BUN (9 - 20 mg/dL) 27 H Creatinine (0.7 - 1.2 mg/dL) 0.8 Estimated GFR (>60 ml/min) > 60 BUN/Creatinine Ratio (7 - 25 %) 33.8 H Troponin I (<0.11 ng/ml) < 0.01 < 0.01 Triglycerides (<150 mg/dL) 88 Cholesterol (< 200 MG/DL) 146 LDL Cholesterol, Calc (65 - 129 mg/dL) 75 HDL Cholesterol (40 - 60 mg/dL) 54 Cholesterol/HDL Ratio (0.00 - 4.88 %) 3 Coagulation PT (9.4 - 12.5 SEC) 11.1 INR (0.90 - 1.17) 1.02 APTT (25 - 37 SEC) 25 Hematology CBC w Diff NO MAN DIFF REQ WBC (4.8 - 10.8 /CUMM) 6.6 RBC (4.70 - 6.10 /CUMM) 2.80 L Hgb (14.0 - 18.0 G/DL) 8.6 L Hct (42 - 52 %) 25.1 L MCV (80.0 - 94.0 FL) 89.6 MCH (27.0 - 31.0 PG) 30.7 MCHC (33.0 - 37.0 G/DL) 34.2 RDW (11.5 - 14.5 %) 14.6 H Plt Count (130 - 400 /CUMM) 263 MPV (7.4 - 10.4 FL) 7.0 L Gran % (42.2 - 75.2 %) 67.9 Lymphocytes % (20.5 - 51.1 %) 20.1 L Monocytes % (1.7 - 9.3 %) 7.1 Eosinophils % (0 - 5 %) 4.1 Basophils % (0.0 - 2.0 %) 0.8 Absolute Granulocytes (1.4 - 6.5 /CUMM) 4.5 Absolute Lymphocytes (1.2 - 3.4 /CUMM) 1.3 Absolute Monocytes (0.10 - 0.60 /CUMM) 0.5 Absolute Eosinophils (0.0 - 0.7 /CUMM) 0.3 Absolute Basophils (0.0 - 0.2 /CUMM) 0.1 Toxicology Urine Opiates Screen (>2000 NG/ML) < 100 Methadone Screen (>300 NG/ML) < 40 Barbiturate Screen (>200 NG/ML) < 60 Ur Phencyclidine Scrn (>25 NG/ML) < 6.00 Amphetamines Screen (>1000 NG/ML) < 100 U Benzodiazepines Scrn (>200 NG/ML) < 85 Urine Cocaine Screen (>300 NG/ML) < 50 Urine Cannabis Screen (>50 NG/ML) < 5.00 Serum Alcohol (<10 MG/DL) < 10.0 03/08 1856 Chemistry Sodium (137 - 145 mmol/L) 138 Potassium (3.5 - 5.1 mmol/L) 4.7 Chloride (98 - 107 mmol/L) 101 Carbon Dioxide (22 - 30 mmol/L) 25 Anion Gap (5 - 16) 12 BUN (9 - 20 mg/dL) 38 H Creatinine (0.7 - 1.2 mg/dL) 1.3 H Estimated GFR (>60 ml/min) 56 L BUN/Creatinine Ratio (7 - 25 %) 29.2 H Glucose (65 - 99 mg/dL) 109 H Hemoglobin A1c (4.2 - 5.8 %) 5.5 Calcium (8.4 - 10.2 mg/dL) 9.6 Phosphorus (2.5 - 4.5 mg/dL) 4.1 Magnesium (1.6 - 2.3 mg/dL) 2.0 Iron (49 - 181 ug/dL) 75 TIBC (261 - 462 ug/dL) 378 Ferritin (17.9 - 464 ng/mL) 151.0 Total Bilirubin (0.2 - 1.3 mg/dL) 0.4 AST (17 - 59 U/L) 31 ALT (21 - 72 U/L) 55 Alkaline Phosphatase (< 127 U/L) 39 Troponin I (<0.11 ng/ml) < 0.01 [id number] Pept (<125 pg/mL) 55.3 Amylase (30 - 110 U/L) 54 Lipase (23 - 300 U/L) 209 Vitamin B12 (239 - 931 pg/mL) 588 Folate (2.76 - 20.0 ng/mL) 8.9 TSH (0.270 - 4.200 uIU/mL) 6.720 H Free T4 (0.78 - 2.44 ng/dL) 0.87 Coagulation D-Dimer High Sensitivty (0 - 243 ng/ml) 207 Hematology CBC w Diff NO MAN DIFF REQ WBC (4.8 - 10.8 /CUMM) 8.8 RBC (4.70 - 6.10 /CUMM) 2.69 L Hgb (14.0 - 18.0 G/DL) 8.3 L Hct (42 - 52 %) 24.4 L MCV (80.0 - 94.0 FL) 90.6 MCH (27.0 - 31.0 PG) 30.8 MCHC (33.0 - 37.0 G/DL) 34.0 RDW (11.5 - 14.5 %) 14.5 Plt Count (130 - 400 /CUMM) 327 MPV (7.4 - 10.4 FL) 6.7 L Gran % (42.2 - 75.2 %) 74.3 Lymphocytes % (20.5 - 51.1 %) 16.3 L Monocytes % (1.7 - 9.3 %) 6.7 Eosinophils % (0 - 5 %) 2.1 Basophils % (0.0 - 2.0 %) 0.6 Absolute Granulocytes (1.4 - 6.5 /CUMM) 6.5 Absolute Lymphocytes (1.2 - 3.4 /CUMM) 1.4 Absolute Monocytes (0.10 - 0.60 /CUMM) 0.6 Absolute Eosinophils (0.0 - 0.7 /CUMM) 0.2 Absolute Basophils (0.0 - 0.2 /CUMM) 0.1 Assessment/Plan Assessment/Recommendations: Symptomatic anemia. History of melena last week. The patient has received 1 unit of packed red blood cells with slight subsequent increase in hemoglobin. Rule out peptic ulcer disease. Recommendations * The patient has been started on a regular diet today. Please make nothing by mouth after midnight. * IV PPI twice a day * EGD tomorrow * Check CBC tonight and tomorrow; transfuse as needed to keep hemoglobin greater than 8, or with continued symptoms such as lethargy or dyspnea Consult Acknowledgment - Thank you for your consult request.
--- NOTE | 2018-03-09 17:15 | ULTRASOUND REPORT ---
EXAMINATION: LEFT LOWER EXTREMITY VENOUS DOPPLER ULTRASOUND CLINICAL INFORMATION: Left thigh pain. Rule out DVT. COMPARISON: None. TECHNIQUE: Doppler spectral analysis and color flow Doppler imaging was performed of the left lower extremity. Compression and augmentation maneuvers were performed. FINDINGS: The left common femoral vein, greater saphenous vein takeoff, femoral vein, and popliteal vein are normally compressible with normal augmentation responses and phasic changes seen with Doppler imaging. The midcalf peroneal and posterior tibial veins are patent as well. No popliteal cyst is seen. IMPRESSION: No evidence of deep venous thrombosis in the left lower extremity.
[2018-03-09 18:54] LABS: ABSOLUTE BASOPHIL COUNT 0 /CUMM (0.0-0.2); ABSOLUTE EOSINOPHIL COUNT 0.3 /CUMM (0.0-0.7); ABSOLUTE GRANULOCYTE CT 4.7 /CUMM (1.4-6.5); ABSOLUTE LYMPH COUNT 1.4 /CUMM (1.2-3.4); ABSOLUTE MONOCYTE COUNT 0.5 /CUMM (0.10-0.60); BASOPHIL % 0.6 % (0.0-2.0); EOSINOPHIL % 4.2 % (0-5); GRANULOCYTE % 68.1 % (42.2-75.2); HEMATOCRIT 25.3 % (42-52); MEAN CORPUSCULAR HGB 30.5 PG (27.0-31.0); MEAN CORPUSCULAR HGB CONC 33.6 G/DL (33.0-37.0); MEAN CORPUSCULAR VOLUME 90.8 FL (80.0-94.0); MEAN PLATELET VOLUME 6.8 FL (7.4-10.4); PLATELET COUNT 283 /CUMM (130-400); RBC DISTRIBUTION WIDTH 15.3 % (11.5-14.5); RED BLOOD CELL CT 2.78 /CUMM (4.70-6.10); WHITE BLOOD CELL COUNT 6.9 /CUMM (4.8-10.8)
[2018-03-10] VITALS: BP 100/60
[2018-03-10 02:00] VITALS: BP 100/60
[2018-03-10 04:00] VITALS: BP 100/60
[2018-03-10 06:00] VITALS: BP 100/60
[2018-03-10 07:02] VITALS: BP 118/68
--- NOTE | 2018-03-10 08:07 | PN- Housestaff ---
Rosa PALACIOS,[facility] 03/10/18 0807: Subjective Follow-up For: Chest Pain Anemia Complaints: no complaints Tele-Events Since Last Visit: NSR with HR 62-83. Subjective: Feels well and has no complaints. Curious to know the results of his echo. Review of Systems Constitutional: Reports: no symptoms. Objective Last 24 Hrs of Vital Signs/I&O Vital Signs Date Time Temp Pulse Resp B/P B/P Pulse O2 O2 Flow FiO2 Mean Ox Delivery Rate 03/10 0702 98.7 75 20 118/68 96 Room Air / 0600 73 100/60 05/09 0600 73 100/60 05/09 0400 73 100/60 05/09 0200 73 100/60 05/09 0000 73 100/60 05/08 2316 98.8 73 20 100/60 98 Room Air /08 2200 73 100/60 05/08 2000 73 100/60 05/08 1439 98.9 74 20 110/62 99 Room Air / 1200 84 118/64 Intake & Output 03/10 1600 03/10 0800 03/10 0000 Intake Total 440 Output Total Balance 440 Intake, Oral 440 Patient 198 lb Weight Physical Exam General Appearance: Alert, Oriented X3, Cooperative, No Acute Distress Skin: No Rashes, No Breakdown Skin Temp/Moisture Exam: Warm/Dry Sepsis Skin Exam (color): Normal for Ethnicity HEENT: Atraumatic Cardiovascular: Normal S1, Normal S2, No Murmurs Lungs: Clear to Auscultation, Normal Air Movement Abdomen: Soft, No Tenderness Neurological: Normal Speech Extremities: No Edema Last 24 Hrs of Lab/Andrea Results Last 24 Hrs of Labs/Mics: Laboratory Tests 03/10/18 0610: Anion Gap 10, Estimated GFR > 60, BUN/Creatinine Ratio 22.5, CBC w Diff Pending, WBC Pending, RBC Pending, Hgb Pending, Hct Pending, MCV Pending, MCH Pending, MCHC Pending, RDW Pending, Plt Count Pending, MPV Pending 03/09/18 1827: CBC w Diff NO MAN DIFF REQ, RBC 2.78 L, MCV 90.8, MCH 30.5, MCHC 33.6, RDW 15.3 H, MPV 6.8 L, Gran % 68.1, Lymphocytes % 19.7 L, Monocytes % 7.4, Eosinophils % 4.2, Basophils % 0.6, Absolute Granulocytes 4.7, Absolute Lymphocytes 1.4, Absolute Monocytes 0.5, Absolute Eosinophils 0.3, Absolute Basophils 0 Assessment/Plan Assessment: 62-year-old male with past medical history of hypertension, hyperlipidemia, diverticulosis presenting this admission with chief complaint of shortness of breath and dyspnea on exertion. Assessment: 1. Symptomatic Anemia 2. Chest Pain - Resolved 3. TOMASA - resolved Plan: * NPO currently with plans for EGD in the afternoon to assess for ulcers/source of bleed. The patient reports using 800mg Aspirin on 3 occasions prior to playing golf one week ago. Also mentioned using heavy alcohol in the past week. * If EGD is normal can likely be discharged. * His blood alcohol level on admission was <10. * ACS was r/o with serial trops and EKG * Echocardiogram showed normal LVEF and without any abnormalities. * His Cr has trended down to normal. Likely elevated due to dehydration. * Diet: NPO for now. Will advance after EGD. * DVT Prophylaxis: * Code Status: Full Code Problem List: 1. Symptomatic anemia Pain Ratin Pain Location: none Pain Goal: Remain pain free Pain Plan: none Tomorrow's Labs & Rationales: CBC Andrés Rosado 03/10/18 1102: Attending MD Review Statement Attending Statement Attending MD Statement: examined this patient, discuss w/resident/PA/RETORT CONDENSER ATTENDANT, agreed w/resident/PA/RETORT CONDENSER ATTENDANT, discussed with family, reviewed EMR data (avail), discussed with nursing, discussed with case mgmt, reviewed images, amended to note Attending Assessment/Plan: Patient seen/examined bedside. Denies any new complaints. He is on iv PPI. NPO for possible EGD today. Had bowel movement but unable to decribe. His h/h remains stable. GI consulted and follow recommendations. Discharge planning based on EGD results and if ok with GI. Plan of care d/wed patient bedside.
[2018-03-10 08:08] LABS: ABSOLUTE BASOPHIL COUNT 0 /CUMM (0.0-0.2); ABSOLUTE EOSINOPHIL COUNT 0.3 /CUMM (0.0-0.7); ABSOLUTE GRANULOCYTE CT 4.9 /CUMM (1.4-6.5); ABSOLUTE MONOCYTE COUNT 0.4 /CUMM (0.10-0.60); BASOPHIL % 0.6 % (0.0-2.0); EOSINOPHIL % 3.8 % (0-5); GRANULOCYTE % 74.4 % (42.2-75.2); HEMATOCRIT 25.7 % (42-52); MEAN CORPUSCULAR HGB 30.8 PG (27.0-31.0); MEAN CORPUSCULAR HGB CONC 34.1 G/DL (33.0-37.0); MEAN CORPUSCULAR VOLUME 90.4 FL (80.0-94.0); MEAN PLATELET VOLUME 7.1 FL (7.4-10.4); PLATELET COUNT 276 /CUMM (130-400); RBC DISTRIBUTION WIDTH 15.7 % (11.5-14.5); RED BLOOD CELL CT 2.85 /CUMM (4.70-6.10); WHITE BLOOD CELL COUNT 6.6 /CUMM (4.8-10.8)
--- NOTE | 2018-03-10 11:45 | Patient Discharge Instructions ---
Discharge Instructions General Discharge Information You were seen/treated for: Peptic Ulcer Anemia Special Instructions: Please follow up with your PCP within one week of discharge. Please follow up with Dr Norman within one month of discharge Diet Continue normal diet: Yes Recommended Diet: Heart Healthy Activity Full Activity/No Limits: Yes Acute Coronary Syndrome Inclusion Criteria At DC or during hospital stay patient has or had the following: ACS DIAGNOSIS No Discharge Core Measures Meds if any: Prescribed or Continued at Discharge Meds if any: NOT Prescribed or Continued at Discharge Congestive Heart Failure Inclusion Criteria At DC or during hospital stay patient has or had the following: CHF DIAGNOSIS No Discharge Core Measures Meds if any: Prescribed or Continued at Discharge Meds if any: NOT Prescribed or Continued at Discharge Cerebrovascular accident Inclusion Criteria At DC or during hospital stay patient has or had the following: CVA/TIA Diagnosis No Discharge Core Measures Meds if any: Prescribed or Continued at Discharge Meds if any: NOT Prescribed or Continued at Discharge Venous thromboembolism Inclusion Criteria VTE Diagnosis No VTE Type NONE VTE Confirmed by (Test) NONE Discharge Core Measures - Per Current guidelines, there needs to be overlap - treatment for the first 5 days of Warfarin therapy. - If discharged on Warfarin prior to 5 days of - overlap therapy, the patient will need to be - assessed for post discharge needs including - *Post discharge parental anticoagulation - *Warfarin and/or parental anticoagulation education - *Follow up date to check INR post discharge At least 5 days overlap therapy as Inpatient No Meds if any: Prescribed or Continued at Discharge Note: Overlap Therapy is Warfarin and Anticoagulant Meds if any: NOT Prescribed or Continued at Discharge
--- NOTE | 2018-03-10 14:18 | Proc Note Endoscopy ---
Endoscopy Procedure Procedure Date: 03/10/18 Procedure Type: EGD w/biopsy Drafting Teacher: Jayy Norman M.D. ASA Classification: III Indications: Anemia Melena (resolved) Instrument: diagnostic gastroscope Meds Received: MAC (O2 via mask) Patient's Tolerance: good Complications: none Extent Reached: second part of duodenum Procedure: The patient signed informed consent, and was medicated. Lidocaine pharyngeal spray was administered. Pulse oximetry, blood pressure and cardiac monitoring were performed continuously throughout the procedure. The Olympus high- definition gastroscope was inserted into the mouth and advanced to the duodenum. Retroflexion was performed within the stomach to examine the cardia. Careful examination was performed. Findings: The esophagus had normal caliber and contour. The mucosa was normal throughout. There were no varices. The GE junction at 41 cm was normal. There was no hiatal hernia. Stomach had normal distention, and active peristalsis. The cardia was normal. The mucosa and folds were normal throughout. There were no varices, nor gastropathy. Biopsies were obtained from body, incisura and antrum. Pyloric channel was normal. In the proximal duodenal bulb just adjacent to the pyloric channel there was a small ulceration with friability of the edges. Just distal to this in the duodenal bulb was a second oval ulcer of approximate 1 cm, with a clean white exudate base, and with a red spot but no visible vessel. This also had slight friability to its edges. There was mucosal edema around the ulceration. The apex of the bulb also had some edema, but no ulceration. The mucosa and folds of the duodenal sweep were normal. Impression: * Duodenal bulbar ulcers, without visible vessel/clot Recommendations: * PPI daily * Await pathology * Avoid NSAIDs/aspirin * Regular diet * Oral iron supplementation * Given stability of hemoglobin, may discharge today (from a GI standpoint) with outpatient follow-up in approximately 1 month CC: Deborah PALACIOS,Kavya
[2018-03-10 14:56] VITALS: BP 140/84
[2018-03-10] MEDS ORDERED: OMEPRAZOLE40 M1 PO ×3 (15:14→15:55)
[2018-03-10] MEDS ORDERED: FERROUS SULFAT325 M3 PO ×3 (15:16→15:55)
--- NOTE | 2018-03-10 15:19 | Discharge Summary ---
Visit Information Visit Dates Admission Date: 03/08/18 Discharge Date: 03/10/18 Hospital Course Course Attending Physician: Andrés Rosado MD Primary Care Physician: Deborah PALACIOS,[facility] Course: 62-year-old male with past medical history of hypertension, hyperlipidemia, diverticulosis presenting this admission with chief complaint of shortness of breath and dyspnea on exertion. Below is a list of problems that were addressed during his hospital stay. Allergies: Coded Allergies: NO KNOWN ALLERGIES (03/02/13) Significant Procedures: SERVICE DATE: 03/09/18 EXAM TYPE: CARD - ECHOCARDIOGRAM FINDINGS Left Ventricle Normal global left ventricular size, wall thickness, systolic function with no obvious regional wall motion abnormalities. Normal left ventricular ejection fraction estimated at 55-60%. Right Ventricle Normal right ventricular size and function. Right Atrium Normal right atrial size. Left Atrium Mild to moderate left atrial dilatation. Mitral Valve Mitral valve thickened. Mild mitral annular calcification. Mild mitral regurgitation. Aortic Valve Trileaflet aortic valve. Diffuse thickening (sclerosis) of the aortic valve cusps without reduced excursion. No aortic stenosis. No aortic regurgitation. Tricuspid Valve Structurally normal tricuspid valve. Mild tricuspid regurgitation. Pulmonic Valve Structurally normal pulmonic valve. Trace pulmonic regurgitation. Pericardium No pericardial effusion. Great Vessels Normal size aortic root and proximal ascending aorta. CONCLUSIONS 1. MIld aortic sclerosis is present with no valvular stenosis or insufficiency. 2. Mitral leaflet thickening is present with mild anular calcification and mild mitral insufficiency with mild to moderate left atrial enlargement. 3. There is no significant pericardial fluid present. 4. The left ventricular chamber size and systolic function appear normal. There are no visible resting wall motion abnormalities. 6. Mild tricuspid insufficiency is present with minimal pulmonic insufficiency and no evidence of pulmonary hypertension. SERVICE DATE: 03/09/18- EXAM TYPE: US - US-UNILATERAL VENOUS DOPPLER FINDINGS: The left common femoral vein, greater saphenous vein takeoff, femoral vein, and popliteal vein are normally compressible with normal augmentation responses and phasic changes seen with Doppler imaging. The midcalf peroneal and posterior tibial veins are patent as well. No popliteal cyst is seen. IMPRESSION: No evidence of deep venous thrombosis in the left lower extremity. SERVICE DATE: 03/08/18 EXAM TYPE: RAD - XRY-PORTABLE CHEST XRAY FINDINGS: Lungs are well expanded and clear. No pulmonary edema, consolidation, pneumothorax or pleural effusion. Cardiac silhouette is normal in size. The hilar contours are normal. No acute osseous findings. IMPRESSION: No acute cardiopulmonary disease. Disposition Summary Disposition Principal Diagnosis: TOMASA Anemia Duodunal Ulcer Additional Diagnosis: Hypertension Hyperlipidemia Discharge Disposition: home or self care Discharge Instructions General Discharge Information Code Status: Full Code Patient's Diet: Regular Patient's Activity: As tolerated Follow-Up Instructions/Appts: Please follow up with your PCP within one week of discharge. Please follow up with Dr Norman within one month of discharge. Medications at Discharge Discharge Medications: Continue taking these medications: Lisinopril (Lisinopril) 10 MG TABLET 1 Tablet ORAL DAILY Qty = 30 Comments: Last Taken:NOT GIVEN IN THE HOSPITAL Time: Simvastatin (Simvastatin*) 40 MG TABLET 1 Tablet ORAL Every night Qty = 30 Comments: Last Taken:03/09/18 Time:5:30 PM ATORVASTATIN GIVEN Start taking the following new medications: Omeprazole (Omeprazole) 40 MG CAPSULE.DR 1 Capsule ORAL DAILY Qty = 30 No Refills Comments: Last Taken:03/10/18 Time:8 AM PANTOPRAZOLE IV GIVEN Ferrous Sulfate (Ferrous Sulfate) 325 MG (65 MG IRON) TABLET 1 Tablet ORAL DAILY Qty = 30 No Refills Comments: Last Taken:NOT GIVEN IN THE HOSPITAL Time: Copies To: Deborah PALACIOS,Kavya Attending MD Review Statement Documenting Attending: Andrés Rosado MD Other Findings: Patient seen/examined bedside. Denies any new complaints. He is on PPI daily. S/ P EGD today revealed gastric ulcers with no active bleeding. His h/h remains stable. GI consulted and follow recommendations. Plan of care d/wed patient bedside. Follow up with GI in 1 month for biopsy results. Avoid NSAIDS in future.
== END 2018-03-10 16:20 | DRG 812 ==
LOC: ERH 18:42 → ERHI 21:53 → 1NO 21:53 → ENRESERV 22:52 → 1NO 23:23
PROVIDERS: Internal Medicine; Internal Medicine Hematology & Oncology; Physician Assistant
PROC: 30233N1 Transfusion of Nonautologous Red Blood Cells into Peripheral Vein, Percutaneous Approach (ICD-10-PCS; 2018-03-09)
PROC: 0DB68ZX Excision of Stomach, Via Natural or Artificial Opening Endoscopic, Diagnostic (ICD-10-PCS; principal; 2018-03-10)
DX: D62 Acute posthemorrhagic anemia (principal); N17.9 Acute kidney failure, unspecified; E78.5 Hyperlipidemia, unspecified; I10 Essential (primary) hypertension; Z85.038 Personal history of other malignant neoplasm of large intestine; K57.90 Diverticulosis of intestine, part unspecified, without perforation or abscess without bleeding; F10.10 Alcohol abuse, uncomplicated; E86.0 Dehydration; Z79.1 Long term (current) use of non-steroidal anti-inflammatories (NSAID); K26.9 Duodenal ulcer, unspecified as acute or chronic, without hemorrhage or perforation
CPT/HCPCS: 1NP; 36415; 36592; 71045; 80307; 82436; 86920; 93005; 93010; 93306; 96360; 99291; G0480; J3490; J7042; P9016